=== PATIENT | male | born 1975 | race Caucasian/White ===

== ENCOUNTER 2023-08-08 04:28 | Day surgery (SDC) | payer OTHER ==
[2023-08-04 13:54] VITALS: BMI 27.1
[2023-08-08] MEDS ORDERED: LIDOCAINE HCL 1%, 10 MG/ML (20ML VIAL) ONE (13:15)
[2023-08-08] MEDS ORDERED: BUPIVACAINE HCL/PF 0.5% (5MG/ML) 10 ML VIAL ONE (13:15)
[2023-08-08] MEDS ORDERED: oxyCODONE HCL 5 MG TABLET PO PRN (13:50)
[2023-08-08] MEDS ORDERED: ONDANSETRON 4 MG/2 ML VIAL IVPUSH PRN (13:50)
[2023-08-08] MEDS ORDERED: LIDOCAINE HCL/PF 2% SDV 5ML VIAL ONE (13:52)
[2023-08-08] MEDS ORDERED: SEVOFLURANE 250 ML BTL ONE (13:52)
[2023-08-08] MEDS ORDERED: MIDAZOLAM HCL 2 MG/2 ML SINGLE DOSE VIAL ONE (13:52)
[2023-08-08] MEDS ORDERED: PROPOFOL 20 ML ONE (13:52)
[2023-08-08] MEDS ORDERED: DEXAMETHASONE SOD PHOSPHATE 4 MG/1 ML VIAL ONE (14:13)
[2023-08-08] MEDS: ceFAZolin SODIUM 1 GM VIAL IVPB ONE (14:23)
[2023-08-08] MEDS ORDERED: ceFAZolin SODIUM 1 GM VIAL ONE (14:23)
[2023-08-08] MEDS: BUPIVACAINE HCL/PF 0.5% (5MG/ML) 10 ML VIAL IJ ONE ×2 (14:30)
[2023-08-08] MEDS: LIDOCAINE 1% P/F 10 MG/ML VIAL INF ONE ×2 (14:30)
[2023-08-08] MEDS ORDERED: ACETAMINOPHEN INJECTION 100 ML IVPB ONE (15:27)
[2023-08-08] MEDS: ACETAMINOPHEN 1000 MG/100 ML BAG IVPB PRN (15:37)
[2023-08-08] MEDS: LACTATED RINGERS SOLUTION 1,000 ML IV SCH (15:48)
[2023-08-08 16:35] VITALS: PULSE 64; RESP 18
[2023-08-08 17:50] VITALS: BP 129/86; TEMP 97.7
== END 2023-08-08 17:45 | disposition home or self-care (01) ==
LOC: JASU-SURG 04:28
PROVIDERS: ATTEND Urology
PROC: 0VB70ZZ Excision of Left Tunica Vaginalis, Open Approach (ICD-10-PCS; principal; 2023-08-08 14:00)
DX: N43.3 Hydrocele, unspecified (principal)
CPT/HCPCS: 88302-TC; 94760; J0131

== ENCOUNTER 2024-03-22 19:23 | Emergency (ER) | payer OTHER ==
[2024-03-22 19:44] VITALS: TEMP 97.9; BMI 27.1
[2024-03-22] MEDS ORDERED: METHOCARBAMOL 500 MG TABLET ONE (20:41)
[2024-03-22] MEDS ORDERED: KETOROLAC TROMETHAMINE 30 MG/1 ML VIAL ONE (20:42)
[2024-03-22] MEDS ORDERED: ACETAMINOPHEN 325 MG TABLET (FP) ONE (20:42)
[2024-03-22] MEDS: KETOROLAC TROMETHAMINE 30 MG/1 ML VIAL IM ONE (20:54)
[2024-03-22] MEDS: ACETAMINOPHEN 500 MG TABLET (FP) PO ONE (20:54)
[2024-03-22] MEDS: METHOCARBAMOL 500 MG TABLET PO ONE (20:55)
[2024-03-22] MEDS ORDERED: LIDOCAINE 5% TOPICAL PATCH ONE (20:57)
[2024-03-22] MEDS: LIDOCAINE 5% TOPICAL PATCH TP ONE (21:05)
[2024-03-22 21:29] VITALS: BP 149/97; PULSE 87; RESP 17
[2024-03-23] MEDS ORDERED: LIDOCAINE PATCH REMOVAL MC SCH (09:00)
== END 2024-03-22 22:17 | disposition home or self-care (01) ==
LOC: JER 19:23
PROC: 3E0233Z Introduction of Anti-inflammatory into Muscle, Percutaneous Approach (ICD-10-PCS; principal; 2024-03-22)
DX: M54.50 Low back pain, unspecified (principal); R20.2 Paresthesia of skin; R26.81 Unsteadiness on feet
CPT/HCPCS: 99284-25